=== PATIENT | female | born 1945 | race Caucasian/White ===

== ENCOUNTER 2017-08-24 13:28 | Emergency (ER) | payer MEDICARE, MEDICAID ==
[~2017-08-24] VITALS: Ht 152.4 cm; Wt 80.9 kg
[2017-08-24] MEDS ORDERED: LOSA50TA39 PO (14:15)
[2017-08-24] MEDS ORDERED: WARF-18 PO (14:16)
[2017-08-24] MEDS ORDERED: TRAM50TA1 PO (14:17)
[2017-08-24] MEDS ORDERED: OMEP20TC12 PO (14:18)
[2017-08-24] MEDS ORDERED: METO25TE2 PO (14:19)
[2017-08-24] MEDS ORDERED: NACL 0.9% 500 ML IV ONE (14:25)
--- NOTE | 2017-08-24 14:25 | NUR ---
71/F SENT FROM CLINIC FOR ABN EKG. PT REPORTS SHE WENT THERE FOR F/U ON LT KNEE XRAY RT PAIN AND BLOOD WORK ANALYSIS. PT REPORTS MILD CP 3/10 IN OFFICE NON RADIATING. WITH GENERALIZED MALIASE AND SUDDEN WEAKNESS. PT BROUGHT TO ER. HX VALVE IMPLANT AND DM. AX DENIES.
--- NOTE | 2017-08-24 14:36 | NUR ---
DR HARDY IN ROOM FOR EXAM.
--- NOTE | 2017-08-24 14:46 | NUR ---
FAMILY AT BEDSIDE, UPDATED ON STATUS
[2017-08-24 14:53] LABS: BASOPHILS # (AUTO) 0.1 K/uL (0.00-0.22); BASOPHILS % (AUTO) 1.6 % (0.0-2.0); EOSINOPHILS % (AUTO) 0.5 % (0.0-4.0); HEMATOCRIT 40.5 % (36-48); HEMOGLOBIN 13.2 g/dL (12.0-16.0); LYMPHOCYTES # (AUTO) 1.3 K/uL (2.5-16.5); LYMPHOCYTES % (AUTO) 14.9 % (20.5-51.1); MEAN CORPUSCULAR HEMOGLOBIN 27 pg (27-31); MEAN CORPUSCULAR HGB CONC 33 g/dL (33-37); MEAN CORPUSCULAR VOLUME 82 fL (80-94); MONOCYTES # (AUTO) 0.6 K/uL (0.8-1.0); MONOCYTES % (AUTO) 6.4 % (1.7-9.3); NEUTROPHILS # (AUTO) 6.9 K/uL (1.8-7.7); NEUTROPHILS % (AUTO) 76.6 % (42.2-75.2); PLATELET COUNT (AUTO) 337 K/uL (140-450); RED BLOOD CELL COUNT(AUTO) 4.95 MIL/uL (4.20-5.40); RED CELL DISTRIBUTION WIDTH 14.5 % (11.6-13.7); WHITE BLOOD COUNT (AUTO) 8.9 K/uL (4.8-10.8)
[2017-08-24 15:08] LABS: PROTHROMBIN TIME 15.1 secs (10.8-13.4)
[2017-08-24 15:20] LABS: ALBUMIN 4.2 g/dL (3.4-5.0); ANION GAP 14.7 (8-16); ASPARTATE AMINOTRANSFERASE 27 U/L (15-37); CARBON DIOXIDE 26.8 mmol/L (21-32); CHLORIDE 96 mmol/L (98-107); CREATININE 0.8 mg/dL (0.6-1.3); GLUCOSE 97 mg/dL (74-106); POTASSIUM 3.5 mmol/L (3.5-5.1); SODIUM SERUM 134 mmol/L (136-145); TOTAL BILIRUBIN 0.3 mg/dL (0.0-1.0); UREA NITROGEN, BLOOD 26 mg/dL (7-18)
--- NOTE | 2017-08-24 16:00 | NUR ---
C/O L ABD PAIN 04/06; NOTIFIED DR TIWARI.
[2017-08-24] MEDS ORDERED: fentaNYL 0.05 MG/ML VIAL IVP ONE (16:20)
--- NOTE | 2017-08-24 17:00 | NUR ---
PT REPORTS RELUEF AFTER PAIN MEDICATION AND REQUESTING TO GO HOME.
--- NOTE | 2017-08-24 17:02 | NUR ---
Patient discharged with v/s stable. Written and verbal after care instructions given and explained. Patient verbalized understanding. Ambulatory with steady gait. All questions addressed prior to discharge. Advised to follow up with PMD.
[2017-08-24 18:02] VITALS: BP 128/95
== END 2017-08-24 17:02 | disposition home or self-care (01) ==
LOC: MED 13:28
DX: R53.1 Weakness (principal); M79.605 Pain in left leg; R05 Cough; Z95.2 Presence of prosthetic heart valve
CPT/HCPCS: 36415; 71010; 80053; 84484; 85025; 85610; 85730; 93005; 96361; 96374; 99285; J3010; Q0092